=== PATIENT | male | born 1975 | race Caucasian/White ===

== ENCOUNTER 2016-10-31 08:40 | Emergency (ER) | payer OTHER ==
[~2016-10-31] VITALS: Ht 172.7 cm; Wt 109.1 kg
[~2016-10-31 08:40] MED LIST: BUPR150T12 PO; CLIN-78 PO; DEXT20TA8 PO; FENO160T14 PO; GLIP5TAB21 PO; HYDR-4003 PO; LISI-567 PO; METF500T4 PO; OMEP20CA11 PO; PRAV40TA PO; SUMA100T2 PO
[2016-10-31 08:43] VITALS: BP 168/120; PULSE 90; RESP 20; O2SAT 99
--- NOTE | 2016-10-31 08:52 | ED.REPORT ---
HPI-Abd Pain M 40 and Over Date of Service Oct 31, 2016 ED Provider: Placido Paz Pt is a 41 year old male with a hx of DM, HTN, and diverticulitis who presents to the ED complaining of lower abdominal pain onset one week ago. Associated symptoms include nausea and diarrhea over the last 2 days. He denies vomiting, hematochezia, fever, dysuria, or any other symptoms. He has had similar symptoms previously when he had diverticulitis. He was on abx (he believes it to be clindamycin) 5 weeks ago s/p having a tooth pulled. Nursing Notes Stated Complaint: SEVERE ABDOMINAL PAIN Chief Complaint: Male Abdominal Pain Nursing Notes Reviewed: Yes Allergies: Coded Allergies: Penicillins (Verified Allergy, Intermediate, Hives, 10/31/16) Scheduled Bupropion ER (Bupropion ER) 150 Mg Tablet.er 150 MG PO BID Clindamycin (Clindamycin) 300 Mg Capsule 300 MG PO QID Dextroamphetamine/Amphetamine (Amphetamine Mixed Salts) 20 Mg Tablet 20 MG PO BID Fenofibrate (Fenofibrate) 160 Mg Tablet 160 MG PO DAILY Glipizide ER (Glipizide ER) 10 Mg Tab.er.24 10 MG PO BID Lisinopril (Lisinopril) 20 Mg Tablet 20 MG PO DAILY Metformin (Metformin) 500 Mg Tablet 1,000 MG PO BID Omeprazole (Omeprazole) 20 Mg Capsule.dr 20 MG PO evening Pravastatin (Pravastatin) 40 Mg Tablet 40 MG PO Evening Sumatriptan Succinate (Sumatriptan Succinate) 100 Mg Tablet 100 MG PO Q24H Scheduled PRN Hydrocodone-Acetaminophen 5-325 mg (Hydrocodone-Acetaminophen 5-325 mg) 1 Each Tablet 1 TABLET PO Q4H PRN PRN For Pain Hydrocodone-Acetaminophen 5-325 mg (Hydrocodone-Acetaminophen 5-325 mg) 1 Each Tablet 1 TABLET PO Q4H PRN PRN For Pain Ondansetron ODT (Zofran ODT) 4 Mg Tablet 4 MG PO Q4H PRN PRN For Nausea General Time Seen by MD: 08:50 Chief Complaint Abdominal pain Hx Obtained From: Patient Arrived By: Walk-in Sudden in Onset?: Yes Onset Occurred: 1 week ago Symptom Duration: Since onset Location: : Abdomen lower Quality: Cramping, Painful Severity: Current: Moderate Severity: Maximum: Moderate Recent Healthcare: Recent doctor visit Similar Sx Previous: Yes Risk Factors )( AAA Risk Stratification HypertensionNo Prior AAA Risk factors reviewed Past Medical History Past Medical History Notes: Recent root canal (10/2015) Past Medical History Sleep apnea on CPAP Reports: Diabetes mellitus, Hyperlipidemia, Hypertension Reports: Diverticulitis Past Surgical History hernia repair tonosynovitis surg Reports: Appendectomy Family History Reports: Coronary artery disease Smoking History Never Smoker Social History , is concession supervisor at [employer] Alcohol Use: In recovery Drug Use: Denies drug use Ambulatory Status Independent Review of Systems Constitutional: Denies: Fever Respiratory: Denies: Non-productive cough GI: Reports: Abdominal pain, Diarrhea, Nausea, Denies: Hematochezia, Vomiting Male: Denies Dysuria Musculoskeletal: Denies: Back pain Complete sys rev & neg: except as marked. Physical Exam Initial Vital Signs Vital Signs (First) Date Time Temp Pulse Resp B/P Pulse Ox O2 Delivery O2 Flow Rate FiO2 10/31/16 08:43 36.6 90 20 168/120 99 Room Air Initial VS: Reviewed, Vital signs normal Head / Eyes: Atraumatic, Normocephalic Neck: Full range of motion Skin: Warm, Dry Neurologic: Alert, Oriented, Nonfocal General/Constitutional: Awake, Alert Appearance / Presentation: Positive: Obese Respiratory / Chest: Atraumatic, Breath sounds NL, Breath sounds = bilat, No respiratory distress Cardiovascular: Heart rate NL, Regular rhythm, Heart sounds NL, No murmurs Abdomen: Atraumatic, Soft Diffuse lower abdominal tenderness Back: No CVA tenderness Interpretation & Diagnostics Lab Results Interpretation Result Diagram: 10/31/16 0855 10/31/16 0855 Test 10/31/16 08:55 10/31/16 10:35 White Blood Count 10.8th/mm3 (3.8-10.1) Red Blood Count 4.98mil/mm3 (4.40-5.80) Hemoglobin 14.4g/dL (13.8-17.2) Hematocrit 41.1% (41.0-50.0) Mean Corpuscular Volume 82.5fL (81-100) Mean Corpuscular Hemoglobin 28.9pg (27.0-35.0) Mean Corpuscular Hemoglobin Concent 35.0% (32.0-37.0) Red Cell Distribution Width 12.7% (12.3-15.4) Platelet Count 304bil/L (150-400) Neutrophils (%) (Auto) 74.1% (40-74) Lymphocytes (%) (Auto) 12.6% (14-46) Monocytes (%) (Auto) 9.9% (4-12) Eosinophils (%) (Auto) 2.8% (0-5) Basophils (%) (Auto) 0.3% (0-3) Sodium Level 136mEq/L (134-144) Potassium Level 4.2mEq/L (3.5-5.2) Chloride Level 99mEq/L (97-108) Carbon Dioxide Level 23mmol/L (18-29) Blood Urea Nitrogen 14mg/dL (6-24) Creatinine 1.10mg/dL (0.76-1.27) Estimat Glomerular Filtration Rate 78mL/min (>59) Glucose Level 224mg/dL (60-99) Lactic Acid Level 1.6mmol/L (0.4-2.0) Calcium Level 9.8mg/dL (8.5-10.1) Magnesium Level 1.8mg/dL (1.6-2.6) Total Bilirubin 0.5mg/dL (0.0-1.2) Aspartate Amino Transf (AST/SGOT) 27U/L (0-50) Alanine Aminotransferase (ALT/SGPT) 44U/L (0-44) Alkaline Phosphatase 55U/L (25-150) Total Protein 7.8g/dL (6.4-8.4) Albumin 4.5g/dL (3.4-5.0) Lipase 31U/L (13-60) Urine Color Straw (YELLOW) Urine Appearance Hazy (CLEAR,HAZY) Urine pH 6.0 (5.0-8.0) Urine Specific [place] 1.005 (1.003-1.035) Urine Protein Negativemg/dL (NEG,TRACE) Urine Glucose (UA) Negativemg/dL (NEGATIVE) Urine Ketones Negativemg/dL (NEGATIVE) Urine Occult Blood Negative (NEGATIVE) Urine Nitrite Negative (NEGATIVE) Urine Bilirubin Negative (NEGATIVE) Urine Urobilinogen Normalmg/dL (NORMAL) Urine Leukocyte Esterase Negative (NEGATIVE) Urine RBC 0-2/hpf (0-2) Urine WBC 0-5/hpf (0-5) Urine Epithelial Cells Occasional/hpf (NONE-MOD) Urine Crystals None seen (NONE SEEN) Urine Bacteria None/hpf (NONE-FEW) Urine Hyaline Casts None/lpf (NONE) Urine Granular Casts None seen (NONE SEEN) Urine Waxy Casts None seen (NONE SEEN) Urine Red Blood Cell Casts None seen (NONE SEEN) Urine White Blood Cell Casts None seen (NONE SEEN) Urine Mucus None seen (None Seen) Urine Trichomonas None seen (NONE SEEN) Urine Yeast None (NONE SEEN) Urinalysis Comment None Urine Culture Reflexed Not indicated CT Abd / Pelvis Interpretation IMPRESSION: 1. 1.0 cm diameter right basilar pulmonary nodule. In retrospect, this was likely present on the plain film dated 11/19/15. Followup imaging in 3 months is recommended. Alternatively, PET CT could be used. Please see guidelines below. 2. No acute intra-abdominal findings. Probable prior appendectomy. 3. No diverticulosis or acute diverticulitis. 4. Hepatic steatosis. 5. Exophytic intermediate density renal mass. Renal mass ultrasound recommended to exclude neoplasm. Fleischner Society criteria for SOLID lung nodule followup. Nodule size (mm)Low-risk patientHigh-risk [id number] follow-up neededFollow-up at 12 mo; if no change, no further follow-up>[id number] CT at 12 mo; if no change, no further follow-up needed.Initial follow-up CT at 6-12 mo, then 18-24 mo if no change. >6-8Initial follow-up CT at 6-12 mo, then 18-24 mo if no change. Initial follow-up CT at 3-6 mo, then 9-12 mo and 24 mo if no change. >8Follow-up CT at 3, 9, 24 mo. Or PET and/or biopsy.Same as for low-risk pts. Fleischner Society criteria for SUB-SOLID lung nodule followup. Solitary pure ground-glass nodules5 mm or lessNo followup needed. >5 mm3 mo follow-up CT to confirm persistence. Then annual CT for 3 years. Part-solid nodules3 mo follow-up CT to confirm persistence. If persistent with solid component <5 mm, annual CT for at least 3 years. If solid component is 5 mm or more, biopsy or surgical resection. Consider PET-CT for lesions > 10 mm. Multiple sub-solid nodulesPure ground glass nodules [address] at 2 and 4 years. Pure ground glass nodules >5 mm without dominant lesion. [address] to confirm persistence, then annual followup CT for at least 3 years. Dominant nodule(s) with part-solid or solid component. [address] to confirm persistence. If persistent, consider biopsy or surgical resection, stephanie if lesions have >5 mm solid component. Dictated by: Nicole Chapin M.D. on 10/31/2016 at 10:22 Approved by: Nicole Chapin M.D. on 10/31/2016 at 10:34 Study type: Abdominal CT IV contrast Interpretation / Wet Read by: Interpret - Radiologist Re-Eval/Medical Decision Med Decision/Clinical Course 41-year-old male presenting complaining of lower abdominal pain and diarrhea times one week. He does report antibiotic use 1 month ago with clindamycin for dental infection. His vital signs are stable. CT scan no acute pathology. He does have a renal mass which will need to be evaluated by an ultrasound as an outpatient. He also has a pulmonary nodule but she reports he has had in the past which will need to be evaluated by a repeat CT scan by primary doctor in 3 months. His abdominal pain resolved. He was unable to provide us with any stool. His urine was negative for infection. He will be discharged home with return precautions. He was discharged with a hat to bring us back any stool should he have any persistence of his diarrhea as he certainly is at risk for C. difficile given his recent antibiotic use. Time of Eval: 11:07 )( Re-Eval Abdomen: Soft Re-Evaluation/Progress Note: Discussed CT results and plan for discharge. Patient understands and agrees with plan. All questions addressed at this time. Counseled Regarding: Diagnosis, Lab results, Need for follow-up, When/why to return to ED Discharge & Departure Primary Impression: Gastroenteritis Additional Impressions: Pulmonary nodule Renal mass Disposition: Home Vital Signs - All Vital Signs Date Time Temp Pulse Resp B/P Pulse Ox O2 Delivery O2 Flow Rate FiO2 10/31/16 12:55 84 14 114/74 97 Room Air 10/31/16 08:43 36.6 90 20 168/120 99 Room Air )( All Prior VS Reviewed: Yes Condition: Stable Patient Instructions: Gastroenteritis (ED) Additional Instructions: Thank you for entrusting us with your care. Your labs were unremarkable. Your CT scan did not reveal anything acute. It also did not indicate diverticulitis or inflammation of your colon. It does appear that you have a renal mass. Please follow up with your primary doctor to receive an ultrasound to rule out cancer. You also have a pulmonary nodule. I recommend a follow up CT scan for this in 3 months. This can also be done by your primary doctor. We will call you if your stool culture is concerning. Please hydrate at home. Return to the emergency department if you experience worsening abdominal pain, fever, nausea, vomiting, or any other new or concerning symptoms. Referrals: Murali Langley MD (PCP) Oseasibyeison Attestation Portions of this note were transcribed by John Toledo. I, Dr. Paz personally performed the history, physical exam and medical decision-making; I reviewed and confirmed the accuracy of the information in the transcribed note. Signed by: Gary Atkinson, 10/31/16 copies to: Murali Langley MD, Ben M MD Oct 31, 2016 08:52 JOHN TOLEDO Oct 31, 2016 09:09
[2016-10-31] MEDS ORDERED: Ondansetron 2 mg/mL 2 mL Inj ONE (09:03)
[2016-10-31] MEDS ORDERED: 0.9% Sodium Chloride 1,000 ML IV ONE ×2 (09:09→11:36)
[2016-10-31] MEDS ORDERED: Ondansetron 2 mg/mL 2 mL Inj IVPUSH PRN (09:10)
[2016-10-31 09:19] LABS: BASOPHILS % (AUTO) 0.3 % (0-3); EOSINOPHILS % (AUTO) 2.8 % (0-5); MONOCYTES % (AUTO) 9.9 % (4-12); Mean Corpuscular Hemoglobin 28.9 pg (27.0-35.0); Mean Corpuscular Volume 82.5 fL (81-100); NEUTROPHILS % (AUTO) 74.1 % (40-74); Platelet Count 304 bil/L (150-400)
[2016-10-31 09:46] LABS: Magnesium 1.8 mg/dL (1.6-2.6)
--- NOTE | 2016-10-31 10:36 | DRSVH ---
PROCEDURE: CT ABDOMEN AND PELVIS WITH CONTRAST ([id number]) INDICATIONS: lower abd pain h/o diverticulitis TECHNIQUE: After the administration of intravenous contrast, 5 mm thick sections acquired from the diaphragm to the symphysis. 5 mm coronal and sagittal reformats were acquired. For radiation dose reduction, the following was used: automated exposure control, adjustment of mA and/or kV according to patient vero latham. COMPARISON: [facility], CR, XR CHEST 1VW (PORTABLE), 11/19/2015, 11:29. FINDINGS: Image quality: Excellent. ABDOMEN: Lung bases: There is a 1.0 cm in diameter pulmonary nodule the right lung base (series 3, image 4). N o other basilar pulmonary nodules. No pleural effusion or pneumothorax. Heart is normal size. Solid organs: The liver is diffusely hypodense suggesting fatty infiltration. The spleen demonstrate s normal size and enhancement. Gallbladder is unremarkable. Biliary system is non dilated. Pancreas enhances normally. No adrenal nodules. Kidneys demonstrate normal size and enhancement, without hy dronephrosis. There is an intermediate density 2.0 cm in diameter exophytic renal mass (Series 2, Im age 24). Peritoneum and bowel: Bowel loops demonstrate normal wall thickness and caliber. The appendix is not visualized; however surgical clips are present in the region of the cecum in the lower quadrant sugg esting prior appendectomy. No definite colonic outpouchings to suggest diverticulosis. No fat strandi ng or mucosal thickening. No free fluid or air. Nodes and vessels: No retroperitoneal or mesenteric adenopathy by size criteria. Aorta and inferior vena cava are normal in size. Miscellaneous: No ventral hernias. PELVIS: Genitourinary: Bladder wall thickness is normal. Miscellaneous: No inguinal adenopathy. There is a moderate-sized left fat-containing inguinal hernia . Herniorrhaphy mesh is present at midline in the anterior pelvis. Bones: No suspicious bony lesions. No vertebral body compression fractures. IMPRESSION: 1. 1.0 cm diameter right basilar pulmonary nodule. In retrospect, this was likely present on the plai n film dated 11/19/15. Followup imaging in 3 months is recommended. Alternatively, PET CT could be us ed. Please see guidelines below. 2. No acute intra-abdominal findings. Probable prior appendectomy. 3. No diverticulosis or acute diverticulitis. 4. Hepatic steatosis. 5. Exophytic intermediate density renal mass. Renal mass ultrasound recommended to exclude neoplasm. Fleischner Society criteria for SOLID lung nodule followup. Nodule size (mm)Low-risk patientHigh-risk [id number] follow-up neededFollow-up at 12 mo; if no levin e, no further follow-up>[id number] CT at 12 mo; if no change, no further follow-up needed.Initial f ollow-up CT at 6-12 mo, then 18-24 mo if no change. >6-8Initial follow-up CT at 6-12 mo, then 18-24 mo if no change. Initial follow-up CT at 3-6 mo, then 9-12 mo and 24 mo if no change. >8Follow-up CT at 3, 9, 24 mo. Or PET and/or biopsy.Same as for low-risk pts. Fleischner Society criteria for SUB-SOLID lung nodule followup. Solitary pure ground-glass nodules5 mm or lessNo followup needed. >5 mm3 mo follow-up CT to confirm persistence. Then annual CT for 3 years. Part-solid nodules3 mo follow-up CT to confirm persistence . If persistent with solid component <5 mm, annual CT for at least 3 years. If solid component is 5 mm or more, biopsy or surgical resection. Consider PET-CT for lesions > 10 mm. Multiple sub-solid nodulesPure ground glass nodules [address] at 2 and 4 years. Pure ground glass nodules >5 mm without dominant lesion. [address] to confirm persistence, then annual followup CT for at least 3 years. Dominant nodule(s) with part-solid or solid component. [address] to confirm persistence. If persistent, consider biopsy or surgical resection, stephanie if lesions have >5 m m solid component. Dictated by: Nicole Chapin M.D. on 10/31/2016 at 10:22 Approved by: Nicole Chapin M.D. on 10/31/2016 at 10:34
[2016-10-31] MEDS ORDERED: HYDROmorphone 1 mg/mL Inj ONE (11:34)
[2016-10-31] MEDS ORDERED: HYDROmorphone 0.5 mg/0.5 mL iSecure Syringe IVPUSH PRN (11:40)
[2016-10-31 12:30] LABS: APPEARANCE,URINE HAZY (CLEAR,HAZY); COLOR,URINE STRAW (YELLOW)
[2016-10-31 12:31] LABS: OCCULT BLOOD,URINE NEGATIVE (NEGATIVE); UROBILINOGEN,URINE NORMAL (NORMAL)
[2016-10-31] MEDS ORDERED: ONDA4TAB9 PO (12:50)
[2016-10-31] MEDS ORDERED: HYDR-4003 PO (12:50)
[2016-10-31 12:55] VITALS: BP 114/74; PULSE 84; RESP 14; O2SAT 97
[2016-11-01] MEDS ORDERED: VANC125C10 PO (12:41)
== END 2016-10-31 12:56 | disposition home or self-care (01) ==
LOC: SED 08:40
DX: K52.9 Noninfective gastroenteritis and colitis, unspecified (principal); R91.1 Solitary pulmonary nodule; N28.89 Other specified disorders of kidney and ureter; I10 Essential (primary) hypertension; E78.5 Hyperlipidemia, unspecified; E11.9 Type 2 diabetes mellitus without complications; G47.33 Obstructive sleep apnea (adult) (pediatric); Z79.84 Long term (current) use of oral hypoglycemic drugs; Z88.0 Allergy status to penicillin
CPT/HCPCS: 36415; 74177; 80053; 81000; 83605; 83690; 83735; 85025; 87507; 96361; 96374; 96375; 96376; 99285; J1170; J1885; J2270; J2405; J7030; Q9967